=== PATIENT | female | born 1985 | race Caucasian/White ===

== ENCOUNTER 2017-07-07 06:41 | Inpatient (IN) | payer BC ==
[~2017-07-07 06:41] MED LIST: NS 1000 ML 0 ML ONE
[2017-07-07] MEDS ORDERED: D5LR 1L W PITOCIN 10 UNITS/L 10 UNITS/1,000 ML BAG IV ONE (06:47)
[2017-07-07] MEDS ORDERED: LR 1000 ML IV 1,000 ML IV ONE ×3 (06:47→09:30)
[2017-07-07] MEDS ORDERED: PITOCIN ONE ×2 (06:48→12:51)
[2017-07-07] MEDS ORDERED: D5 1/2 NS 1L W PITOCIN 20 UNITS/L 20 UNITS/1,000 ML BAG IV ONE (06:48)
[2017-07-07] MEDS ORDERED: D5 1/2 NS 1000 ML 1,000 ML IV ONE (06:48)
[2017-07-07] MEDS ORDERED: PHENERGAN INJ 25 MG IV PRN ×3 (07:17→13:38)
[2017-07-07] MEDS ORDERED: NUBAIN INJ 200 MG VIAL MULTIDOSE IVP PRN (07:17)
[2017-07-07] MEDS ORDERED: PITOCIN IVP ONE (07:17)
[2017-07-07] MEDS ORDERED: REGLAN INJ 10 MG VIAL IVP PRN ×2 (07:17→13:38)
[2017-07-07] MEDS ORDERED: MORPHINE SULFATE INJ 2 MG INJ IVP PRN (07:17)
[2017-07-07] MEDS ORDERED: D5 1/2 NS 1000 ML 1,000 ML IV SCH (07:17)
[2017-07-07] MEDS ORDERED: D5LR 1L W PITOCIN 10 UNITS/L 10 UNITS/1,000 ML BAG IV PRN (07:17)
--- NOTE | 2017-07-07 07:22 | DR.OB ---
OB Quick Note - Assessment/Plan Assessment/Plan: L&D 07/07/17 at 7:10am S-No complaint. O-Afebrile,VSS KRB=083 with good LTV, +accel, no decel. CTX=none CVX=3-4cm/75%/-1/VTX AROM with clear fluid. IUPC and FSE placed. A-IUP at 38 6/7 weeks for induction Rh- GERD IUGR P-Begin pitocin induction Anticipate
[2017-07-07 07:56] LABS: BASOPHILS % (AUTO) 0.6 % (0.2-1.0); EOSINOPHILS % (AUTO) 0.6 % (0.9-2.9); HEMATOCRIT 35.6 % (36.0-47.0); HEMOGLOBIN 12.2 g/dL (12.0-16.0); LYMPHOCYTES % (AUTO) 25.4 % (21.0-51.0); MEAN CORPUSCULAR HEMOGLOBIN 29.6 pg (27.0-34.0); MEAN CORPUSCULAR HGB CONC 34.2 g/dL (33.0-35.0); MEAN CORPUSCULAR VOLUME 86.7 fL (80.0-100.0); MEAN PLATELET VOLUME 10.2 fL (7.4-11.0); MONOCYTES # (AUTO) 0.6 x10^3/uL (0.3-0.8); MONOCYTES % (AUTO) 7.8 % (0.0-13.0); NEUTROPHILS # (AUTO) 5.1 x10^3/uL (2.2-4.8); NEUTROPHILS % (AUTO) 65.6 % (42.0-75.0); PLATELET COUNT 216 X10^3/uL (150.0-450.0); WHITE BLOOD COUNT 7.8 X10^3/uL (3.6-10.0)
[2017-07-07 08:00] LABS: BLOOD UREA NITROGEN 10 mg/dL (7-18); CALCIUM 9.1 mg/dL (8.5-10.1); CARBON DIOXIDE 24.2 mmol/L (21-32); CHLORIDE 102 mmol/L (98-107); COR NA(FOR HYPERGLY) 134 mmol/L (136-145); CREATININE 0.84 mg/dL (0.55-1.02); SODIUM 134 mmol/L (136-145); eGFR BLACK RACES > 60 (>60); eGFR NON BLACK RACES > 60 (>60)
[2017-07-07 08:47] LABS: BILIRUBIN,URINE NEGATIVE (NEGATIVE); BLOOD/HEMOGLOBIN,URINE 1+ (NEGATIVE); GLUCOSE, URINE NEGATIVE (NEGATIVE); KETONES,URINE NEGATIVE (NEGATIVE); LEUKOCYTE ESTERASE ,URINE 1+ (NEGATIVE); NITRITES,URINE NEGATIVE (NEGATIVE); PROTEIN,URINE 1+ (NEGATIVE); UROBILINOGEN,URINE NORMAL (NORMAL)
[2017-07-07] MEDS ORDERED: FENTANYL INJ 100 mcg EPI ONE (08:57)
[2017-07-07 08:59] LABS: APPEARANCE,URINE CLEAR (CLEAR); COLOR,URINE YELLOW (YELLOW)
[2017-07-07 09:00] LABS: BACTERIA,URINE NEGATIVE /HPF (NEGATIVE); SQUAMOUS EPITHELIAL CELL,UR FEW /HPF (NEGATIVE)
[2017-07-07] MEDS ORDERED: NAROPIN EPIDURAL 0.2% 60 ML with FENTANYL INJ 100 mcg 90 MCG IVP SCH ×2 (09:00)
[2017-07-07] MEDS ORDERED: FENTANYL INJ 100 mcg ONE (09:01)
[2017-07-07] MEDS ORDERED: NAROPIN EPIDURAL 0.2% + FENTANYL 90MCG 60 ML EPI ONE (09:02)
[2017-07-07] MEDS ORDERED: EPHEDRINE SULFATE INJ ONE (09:30)
--- NOTE | 2017-07-07 12:01 | DR.OB ---
OB Quick Note - Assessment/Plan Assessment/Plan: L&D 07/07/17 at 11:55am Pitocin=16mu/min. S-No complaint. s/p epidural. O-Afebrile,VSS SPQ=635 with good LTV, +accel, no decel. CTX=q 1 1/2-2min., about 45-55mmHg CVX=8cm/100%/0 A-IUP at 38 6/7 weeks for induction Rh- IUGR GERD P-Cont. pitocin induction Anticipate
[2017-07-07] MEDS ORDERED: HEMABATE IM ONE (12:51)
[2017-07-07] MEDS ORDERED: MOTRIN TAB 800 MG PO PRN (12:59)
--- NOTE | 2017-07-07 12:59 | DR.OB ---
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 Head delivered over intact perineum. No nuchal cord. Nose and mouth bulb suctioned. Body delivered over intact perineum. Cord clamped x 2 and cut. Infant handed to attendant. Cord sent for gases. Placenta delivered spontaneously / intact / 3 vessel cord. No CVX / vaginal / perineal tears. Viable female infant, wt=6'8" and 9/9, stable to NBN. Mother stable to RR. NTJ=[id number].
[2017-07-07] MEDS ORDERED: D5 1/2 NS 1000 ML 1,000 ML with PITOCIN 20 UNITS IV SCH ×2 (13:00)
[2017-07-07] MEDS ORDERED: DERMOPLAST SPRAY TOP PRN (13:38)
[2017-07-07] MEDS ORDERED: AMBIEN PO PRN (13:38)
[2017-07-07] MEDS ORDERED: ADACEL TDaP IM ONE (13:38)
[2017-07-07] MEDS ORDERED: HYPERRHO S/D (or RHOGAM) IM PRN (13:38)
[2017-07-07] MEDS ORDERED: MILK OF MAGNESIA PO PRN (13:38)
[2017-07-07] MEDS: MOTRIN TAB 800 MG PO PRN (17:17)
[2017-07-07] MEDS: D5 1/2 NS 1000 ML 1,000 ML with PITOCIN 20 UNITS IV SCH ×2 (22:25)
[2017-07-08 05:52] LABS: HEMATOCRIT 22.1 % (36.0-47.0); HEMOGLOBIN 7.6 g/dL (12.0-16.0)
[2017-07-08] MEDS: D5 1/2 NS 1000 ML 1,000 ML with PITOCIN 20 UNITS IV SCH ×2 (06:26)
[2017-07-08] MEDS: MOTRIN TAB 800 MG PO PRN (08:00)
[2017-07-08] MEDS ORDERED: PREVACID PO SCH (09:00)
[2017-07-08] MEDS ORDERED: PRENATAL PLUS PO SCH (09:00)
[2017-07-08] MEDS ORDERED: WELLBUTRIN XL 150 MG (DAILY) PO SCH (09:00)
[2017-07-08 13:38] VITALS: BP 116/80
== END 2017-07-08 15:15 | disposition home or self-care (01) | DRG 775 ==
LOC: LD 06:41 → MED/SURG 14:15
PROVIDERS: ADMIT Specialist; ATTEND Specialist
PROC: 10E0XZZ Delivery of Products of Conception, External Approach (ICD-10-PCS; principal; 2017-07-07)
PROC: 10908ZC Drainage of Amniotic Fluid, Therapeutic from Products of Conception, Via Natural or Artificial Opening Endoscopic (ICD-10-PCS; 2017-07-07)
PROC: 3E033VJ Introduction of Other Hormone into Peripheral Vein, Percutaneous Approach (ICD-10-PCS; 2017-07-07)
PROC: 00HU33Z Insertion of Infusion Device into Spinal Canal, Percutaneous Approach (ICD-10-PCS; 2017-07-07)
DX: O36.0920 Maternal care for other rhesus isoimmunization, second trimester, not applicable or unspecified (principal); Z37.0 Single live birth; O99.613 Diseases of the digestive system complicating pregnancy, third trimester; O36.5990 Maternal care for other known or suspected poor fetal growth, unspecified trimester, not applicable or unspecified; Z3A.38 38 weeks gestation of pregnancy; D50.8 Other iron deficiency anemias; K21.9 Gastro-esophageal reflux disease without esophagitis
CPT/HCPCS: 09167; 36415; 59409; 80048; 81001; 85014; 85018; 85025; 86592; 86850; 86900; 86901; A4216; A4222; S0106; S0197; J2590; J2765; J2790; J3010; J7042; J7120

== ENCOUNTER 2021-09-24 06:30 | Inpatient (IN) ==
[2021-09-24] MEDS ORDERED: PITOCIN ONE (06:56)
[2021-09-24] MEDS ORDERED: D5 1/2 NS 1,000 ML 1,000 ML IV ONE (06:57)
[2021-09-24] MEDS ORDERED: BETADINE SOLN ONE (06:57)
[2021-09-24] MEDS ORDERED: D5 1/2 NS 1,000 mL + PITOCIN 20 UNITS/L IV 20 UNITS/1,000 ML BAG IV ONE (06:58)
[2021-09-24] MEDS ORDERED: D5 LR + PITOCIN 10 UNITS/L 10 UNITS/1,000 ML BAG IV ONE (06:58)
[2021-09-24] MEDS ORDERED: NAROPIN EPIDURAL 0.2% 100 ML ONE (06:59)
[2021-09-24] MEDS ORDERED: LR 1,000 ML IV 1,000 ML IV ONE ×2 (06:59→09:09)
[2021-09-24] MEDS ORDERED: FENTANYL VIAL INJ 100 mcg ONE (06:59)
--- NOTE | 2021-09-24 07:31 | DR.OB ---
OB Quick Note - Assessment/Plan Assessment/Plan: L&D 09/24/21 at 7:20am S-No complaint. O-Afebrile,VSS EWD=079 with good LTV, +accel, no decel. CTX=occasional mild CTX CVX=4cm/50%/0/VTX AROM with light meconium. IUPC and FSE placed. A-IUP at 39 1/7 weeks for induction Rh- GERD anxiety P-Begin pitocin induction Anticipate
[2021-09-24] MEDS ORDERED: MORPHINE SULFATE INJ 2 MG INJ IVP PRN (07:57)
[2021-09-24] MEDS ORDERED: D5 1/2 NS 1,000 ML 1,000 ML IV SCH (07:57)
[2021-09-24] MEDS ORDERED: PHENERGAN INJ 25 MG IM PRN ×2 (07:57→11:19)
[2021-09-24] MEDS ORDERED: NUBAIN INJ 200 MG VIAL MULTIDOSE IVP PRN (07:57)
[2021-09-24] MEDS ORDERED: PITOCIN IVP ONE (07:57)
[2021-09-24] MEDS ORDERED: D5 LR + PITOCIN 10 UNITS/L 10 UNITS/1,000 ML BAG IV PRN (07:57)
[2021-09-24] MEDS ORDERED: REGLAN INJ 10 MG VIAL IVP PRN (07:57)
[2021-09-24] MEDS ORDERED: STADOL INJ IVP PRN (07:59)
[2021-09-24] MEDS ORDERED: EPHEDRINE SULFATE INJ ONE (09:09)
[2021-09-24] MEDS: D5 1/2 NS 1,000 ML 1,000 ML with PITOCIN 20 UNITS IV SCH ×4 (12:00→21:47)
--- NOTE | 2021-09-24 12:00 | DR.OB ---
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 Head delivered over intact perineum. Nose and mouth bulb suctioned. No nuchal cord. Body delivered over intact perineum. Cord clamped x 2 and cut. Infant handed to attendant. Cord sent for gases. Placenta delivered spontaneously / intact / 3 vessel cord. No CVX / vaginal / perineal tears. Viable female infant, VTX/OA, wt=7'8" and 7/8, stable to NBN. Mother stable to RR. [id number].
[2021-09-24] MEDS ORDERED: ADACEL or BOOSTRIX TDaP VACCINE IM ONE (12:37)
[2021-09-24] MEDS ORDERED: MILK OF MAGNESIA PO PRN (12:37)
[2021-09-24] MEDS ORDERED: AMBIEN PO PRN (12:37)
[2021-09-24] MEDS ORDERED: HYPERRHO S/D (or RHOGAM) IM PRN (12:37)
[2021-09-24] MEDS ORDERED: DERMOPLAST PAIN RELIEF SPRAY TOP PRN (12:37)
[2021-09-24] MEDS ORDERED: METHERGINE IM ONE (12:50)
[2021-09-24] MEDS ORDERED: METHERGINE ONE (12:52)
[2021-09-24] MEDS: MOTRIN TAB 800 MG PO PRN ×2 (13:45→21:39)
[2021-09-24] MEDS ORDERED: ZOFRAN INJ 4 MG VIAL IVP PRN (14:31)
[2021-09-24] MEDS ORDERED: ZOFRAN TAB 4 MG PO PRN (14:31)
[2021-09-25 05:02] LABS: HEMATOCRIT 31.5 % (36.0-47.0); HEMOGLOBIN 10.6 g/dL (12.0-16.0)
[2021-09-25] MEDS ORDERED: WELLBUTRIN XL 150 MG (DAILY) PO SCH (09:00)
[2021-09-25] MEDS ORDERED: PREVACID PO SCH (09:00)
[2021-09-25] MEDS ORDERED: PRENATAL PLUS PO SCH (09:00)
[2021-09-25] MEDS: MOTRIN TAB 800 MG PO PRN (09:28)
[2021-09-25 12:08] VITALS: BP 109/73
== END 2021-09-25 13:50 | disposition home or self-care (01) | DRG 806 ==
LOC: LD 06:45 → MED/SURG 12:40
PROVIDERS: ADMIT Specialist; ATTEND Specialist
DX: Z01.818 Encounter for other preprocedural examination; Z20.822 Contact with and (suspected) exposure to COVID-19; Z37.0 Single live birth; Z01.812 Encounter for preprocedural laboratory examination; O99.613 Diseases of the digestive system complicating pregnancy, third trimester; O99.343 Other mental disorders complicating pregnancy, third trimester; O36.0930 Maternal care for other rhesus isoimmunization, third trimester, not applicable or unspecified; Z3A.39 39 weeks gestation of pregnancy